=== PATIENT | female | born 1985 | race Caucasian/White ===

== ENCOUNTER 2016-03-22 14:35 | Emergency (ER) | payer BC ==
[2016-03-22 14:42] VITALS: BP 106/83; PULSE 96; TEMP 98.6; BMI 28.7
== END 2016-03-22 16:23 | disposition left against medical advice (07) ==
LOC: JERFT 14:35
DX: Z53.21 Procedure and treatment not carried out due to patient leaving prior to being seen by health care provider (principal)
CPT/HCPCS: 99281-25

== ENCOUNTER 2022-09-04 04:21 | Day surgery (SDC) | payer BC ==
[2022-09-03 14:21] VITALS: BMI 27.4
[~2022-09-04 04:21] MED LIST: BUPIVACAINE HCL/PF 0.5% (5 MG/ML) 30 ML VIAL IJ ONE; LIDOCAINE HCL 1%, 10 MG/ML (20ML VIAL) INF ONE
[2022-09-04] MEDS ORDERED: LIDOCAINE HCL 1%, 10 MG/ML (10ML VIAL) MDV ONE (07:29)
[2022-09-04] MEDS ORDERED: BUPIVACAINE HCL/PF 0.5% (5MG/ML) 10 ML VIAL ONE (07:29)
[2022-09-04] MEDS ORDERED: PROPOFOL 40 ML ONE (07:30)
[2022-09-04] MEDS ORDERED: MIDAZOLAM HCL 2 MG/2 ML SINGLE DOSE VIAL ONE (07:30)
[2022-09-04] MEDS ORDERED: PROPOFOL 20 ML ONE (08:08)
[2022-09-04] MEDS ORDERED: LIDOCAINE HCL 1%, 10 MG/ML (20ML VIAL) INF ONE (08:25)
[2022-09-04] MEDS ORDERED: BUPIVACAINE HCL/PF 0.5% (5 MG/ML) 30 ML VIAL IJ ONE (08:25)
[2022-09-04] MEDS ORDERED: ONDANSETRON 4 MG/2 ML VIAL IVPUSH PRN (08:48)
[2022-09-04] MEDS ORDERED: LACTATED RINGERS SOLUTION 1,000 ML IV SCH (09:00)
[2022-09-04 10:56] VITALS: RESP 20; TEMP 98.6
[2022-09-04 11:11] VITALS: BP 117/75; PULSE 67
== END 2022-09-04 10:04 | disposition home or self-care (01) ==
LOC: JASU-SURG 04:21
PROVIDERS: ATTEND Orthopaedic Surgery
PROC: 0JBJ0ZZ Excision of Right Hand Subcutaneous Tissue and Fascia, Open Approach (ICD-10-PCS; principal; 2022-09-04 08:00)
DX: D36.10 Benign neoplasm of peripheral nerves and autonomic nervous system, unspecified (principal)
CPT/HCPCS: 81025; 88305-TC; 94760